=== PATIENT | female | born 1940 | race Caucasian/White ===

== ENCOUNTER 2017-05-27 05:41 | Day surgery (SDC) | payer MEDICARE, OTHER ==
[2017-05-24 11:02] VITALS: BP 124/75
[2017-05-24 11:43] LABS: HEMATOCRIT 38.8 % (34.6-47.8); WHITE BLOOD COUNT 7.9 x10^3/uL (3.4-10)
[2017-05-24 11:47] LABS: BLOOD UREA NITROGEN 14 mg/dL (7-18)
[2017-05-24 11:48] LABS: PATH.CAST-FLAG NOT PRESENT; SPERM-FLAG NOT PRESENT; SRC-FLAG NOT PRESENT; XTAL-FLAG NOT PRESENT; YLC-FLAG NOT PRESENT
[2017-05-24 11:51] LABS: ASPARTATE AMINO TRANSFERASE 15 U/L (15-37)
[~2017-05-27] VITALS: Ht 167.6 cm; Wt 55.8 kg
[~2017-05-27 05:41] MED LIST: ASCO10004 PO; BETHANECHOL PO; CALC1CAP8 PO; HYDR-3237 PO; HYDR25TA6 PO; NITR50CA PO; OLME20TA19 PO
[2017-05-27] MEDS ORDERED: EPINEPHRINE 1 MG/ML, 1ML ONE (06:09)
[2017-05-27] MEDS ORDERED: BUPIVACAINE/PF 0.5% ONE (06:09)
[2017-05-27] MEDS ORDERED: NITR100C PO (06:23)
[2017-05-27] MEDS ORDERED: LACTATED RINGERS 1,000 ML IV SCH (06:24)
[2017-05-27] MEDS ORDERED: LIDOCAINE 1%, 2ML SQ PRN (06:30)
[2017-05-27] MEDS ORDERED: MAGNESIUM SULFATE 1 GM/2 ML ONE (06:43)
[2017-05-27] MEDS ORDERED: CEFAZOLIN 1,000 MG ONE (06:53)
[2017-05-27] MEDS ORDERED: ROCURONIUM 10 MG/ML,10ML ONE ×2 (06:53→06:54)
[2017-05-27] MEDS ORDERED: FENTANYL PF 250 MCG/5ML ONE (06:53)
[2017-05-27] MEDS ORDERED: MIDAZOLAM 1 MG/ML, 2ML ONE ×2 (06:53→06:55)
[2017-05-27] MEDS ORDERED: DEXAMETHASONE 4 MG/ML, 1ML ONE ×2 (06:53→06:54)
[2017-05-27] MEDS ORDERED: GLYCOPYRROLATE 0.2MG/1ML, 5ML ONE ×2 (06:53→06:54)
[2017-05-27] MEDS ORDERED: LIDOCAINE 2% 100MG/5ML SYRINGE ONE (06:54)
[2017-05-27] MEDS ORDERED: LIDOCAINE-MPF 2% ,5ML ONE (06:54)
[2017-05-27] MEDS ORDERED: PROPOFOL 10 MG/ML, 20ML ONE (06:54)
[2017-05-27] MEDS ORDERED: FENTANYL PF 100 MCG/2ML ONE ×3 (06:55)
[2017-05-27] MEDS ORDERED: BUPIVACAINE/PF 0.5% INFIL ONE (07:24)
[2017-05-27] MEDS ORDERED: KETOROLAC 30 MG/1 ML IV PRN (07:30)
[2017-05-27] MEDS ORDERED: OXYcodone 5 MG/5 ML ORAL.SOL UDC PO PRN (07:30)
[2017-05-27] MEDS ORDERED: MIDAZOLAM 1 MG/ML, 2ML IV PRN (07:30)
[2017-05-27] MEDS ORDERED: ACETAMINOPHEN 325 MG TABLET PO PRN (07:30)
[2017-05-27] MEDS ORDERED: FENTANYL PF 100 MCG/2ML IV PRN (07:30)
[2017-05-27] MEDS ORDERED: HYDROcodone/APAP 7.5-325MG/15ML UDC PO PRN (07:30)
[2017-05-27] MEDS ORDERED: morphine SULFATE 10 MG/ML, 1ML IV PRN (07:30)
[2017-05-27] MEDS ORDERED: MEPERIDINE/PF 25MG/0.5ML IVPush PRN (07:30)
[2017-05-27] MEDS ORDERED: DIAZEPAM 5 MG/ML, 2ML IVPush PRN (07:30)
[2017-05-27] MEDS ORDERED: HYDROmorphone 1 MG/ML, 1ML IV PRN (07:30)
[2017-05-27] MEDS ORDERED: OMNIPAQUE 180 MG/ML, 20ML VIAL ONE (07:55)
[2017-05-27] MEDS ORDERED: HYDROcodone/APAP 7.5-325MG/15ML UDC ONE (08:09)
== END 2017-05-27 10:40 ==
LOC: OUT 05:41
PROVIDERS: ATTEND Orthopaedic Surgery Orthopaedic Surgery of the Spine
DX: M48.55XA Collapsed vertebra, not elsewhere classified, thoracolumbar region, initial encounter for fracture (principal)
CPT/HCPCS: 22513; 22515; 36415; 71020; 72080; 80053; 81001; 85025; 87077; 87086; 87186; 93005; C1713; J0690; J1100; J2250; J3010; J3490; Q9965; J0171; J2704; J3475

== ENCOUNTER → 2020-05-28 | Outpatient (CLI) | payer MEDICARE, OTHER ==
[~2020-05-28] MED LIST changes: +ASCO100018 PO; -ASCO10004 PO; +NITR100C PO; +OLME20TA17 PO; -OLME20TA19 PO
[2020-05-28 10:32] LABS: BASOPHILS % (AUTO) 1 % (0-1); EOSINOPHILS % (AUTO) 3 % (1-7); LYMPHOCYTES % (AUTO) 20 % (22-44); MEAN CORPUSCULAR HEMOGLOBIN 29.1 pg (27.0-34.8); MEAN CORPUSCULAR HGB CONC 31.4 g/dL (32.4-35.8); MEAN PLATELET VOLUME 6.8 fL (7.4-10.4); MONOCYTES % (AUTO) 6 % (2-9); NEUTROPHILS % (AUTO) 71 % (42-75); PLATELET COUNT 306 x10^3/uL (130-400); RED BLOOD COUNT 3.92 x10^6/uL (3.82-5.3); RED CELL DISTRIBUTION WIDTH 15.1 % (9.6-15.2)
[2020-05-28 10:33] LABS: HCT (SEDRATE) 35.5 % (34.6-47.8)
[2020-05-28 10:36] LABS: MD NO
[2020-05-28 10:42] LABS: INTERNATIONAL NORMALIZED RATIO 1.01 (0.93-1.1); PROTHROMBIN TIME 10.7 Seconds (9.6-11.5)
[2020-05-28 10:43] LABS: ALANINE AMINOTRANSFERASE 10 U/L (12-78); ALBUMIN 4.2 g/dL (3.4-5.0); ANION GAP 8 mmol/L (5-15); CALCIUM 9.5 mg/dL (8.5-10.1); CHLORIDE 109 mmol/L (98-107)
[2020-05-28 10:43] LABS: MICROSCOPIC INDICATED
[2020-05-28 10:46] LABS: ALKALINE PHOSPHATASE 75 U/L (45-117); BILIRUBIN,TOTAL 0.6 mg/dL (0.2-1.0)
== END | disposition home or self-care (01) ==
LOC: STAR 09:16
PROVIDERS: ATTEND Orthopaedic Surgery Orthopaedic Surgery of the Spine
DX: Z01.812 Encounter for preprocedural laboratory examination (principal); Z20.828 Contact with and (suspected) exposure to other viral communicable diseases; M48.56XA Collapsed vertebra, not elsewhere classified, lumbar region, initial encounter for fracture; J98.4 Other disorders of lung; I21.3 ST elevation (STEMI) myocardial infarction of unspecified site
CPT/HCPCS: 71046; 80053; 80074; 81001; 85025; 85610; 85651; 85730; 87086; 87635; 87806; 93005; G0475